=== PATIENT | female | born 1970 | race Two or more races ===

== ENCOUNTER 2024-03-13 20:05 | Emergency (ER) | payer OTHER ==
[~2024-03-13] VITALS: Ht 165.1 cm; Wt 86.2 kg
[2024-03-13] MEDS ORDERED: LOTREL 5-10 MG1 CAP PO (20:35)
[2024-03-13] MEDS ORDERED: ASPIRIN 325 MG TABLET.EC PO STA (20:43)
[2024-03-13] MEDS ORDERED: ASPIRIN 325 MG TABLET.EC PO ONE (20:53)
[2024-03-13 21:22] LABS: HEMATOCRIT 36.1 % (36.0-45.00); HEMOGLOBIN 12.1 g/dL (12.0-15.00); MEAN CELL VOLUME 91.3 fL (80.00-100.00); MEAN CORPUSCULAR HEMOGLOBIN 30.6 pg (27.00-32.0); MEAN CORPUSCULAR HGB CONC 33.5 g/dl (32.0-36.0); PLATELET COUNT 239 K/uL (150-450); RED BLOOD COUNT 3.96 M/uL (4.00-6.00); RED CELL DISTRIBUTION WIDTH 15.1 % (11.5-14.5)
[2024-03-13 21:49] LABS: CALCIUM 9.4 mg/dL (8.5-10.1); CREATININE SERUM 0.63 mg/dL (0.55-1.02); GFR 98.11; POTASSIUM 4.47 mEq/L (3.5-5.1)
[2024-03-13 21:56] LABS: PARTIAL THROMBOPLASTIN TIME 27.3 SECONDS (22.0-34.0); PROTHROMBIN TIME 10.9 SECONDS (9.0-11.5)
== END 2024-03-13 23:32 | disposition home or self-care (01) ==
LOC: ER 20:08
PROVIDERS: Emergency Medicine
DX: R07.89 Other chest pain (principal); I10 Essential (primary) hypertension